=== PATIENT | female | born 1970 | race Caucasian/White ===

== ENCOUNTER 2016-05-28 03:34 | Emergency (ER) | payer BC, OTHER ==
[~2016-05-28] VITALS: Ht 172.7 cm; Wt 71.7 kg
[~2016-05-28 03:34] MED LIST: LORTA5 PO; NAPR500 PO
[2016-05-28 03:37] VITALS: BP 136/80; PULSE 114; RESP 18; TEMP 98.3; O2SAT 98
[2016-05-28] MEDS ORDERED: SODIUM CHLOR 0.9% 1000 ML INJ 1,000 ML IV SCH (04:52)
[2016-05-28] MEDS ORDERED: ONDANSETRON HCL 4 MG/2 ML VIAL IVP ONE (05:00)
[2016-05-28] MEDS ORDERED: HYDROmorphone HCL PF 1 MG/ML VIAL IV PUSH ONE (05:00)
[2016-05-28 05:05] LABS: AUTOMATED NEUTROPHIL # 11.8 TH/MM3 (1.8-7.7); BASOPHIL # 0.1 TH/MM3 (0-0.2); BASOPHIL % 0.6 % (0.0-2.0); EOSINOPHIL # 0.1 TH/MM3 (0-0.4); EOSINOPHIL % 0.8 % (0.0-4.0); HEMATOCRIT 44.5 % (35.0-46.0); LYMPH % 13.3 % (9.0-44.0); LYMPHOCYTE # 2.1 TH/MM3 (1.0-4.8); MEAN CELL VOLUME 98.1 FL (80.0-100.0); MEAN CORPUSCULAR HEMOGLOBIN 32.7 PG (27.0-34.0); MEAN CORPUSCULAR HGB CONC 33.4 % (32.0-36.0); NEUT % 76.3 % (16.0-70.0); PLATELET COUNT 251 TH/MM3 (150-450); RED BLOOD COUNT 4.54 MIL/MM3 (4.00-5.30); RED CELL DISTRIBUTION WIDTH 12.4 % (11.6-17.2); WHITE BLOOD COUNT 15.5 TH/MM3 (4.0-11.0)
[2016-05-28 05:07] LABS: HEMO FLAGS DIFF FINAL
[2016-05-28 05:09] LABS: BLOOD, URINE LARGE (NEG); GLUCOSE,URINE NEG (NEG); KETONE, URINE NEG (NEG)
[2016-05-28 05:14] LABS: CHLORIDE 108 MEQ/L (98-107); POTASSIUM 3.8 MEQ/L (3.5-5.1); SODIUM (NA) 141 MEQ/L (136-145)
[2016-05-28 05:18] LABS: ANION GAP 6 MEQ/L (5-15); BICARBONATE 26.7 MEQ/L (21.0-32.0); BLOOD UREA NITROGEN 11 MG/DL (7-18)
[2016-05-28 05:21] LABS: ALT (GPT) 13 U/L (10-53); AST (GOT) 11 U/L (15-37); GLOMERULAR FILTRATION RATE 76 ML/MIN (>89)
[2016-05-28 05:22] LABS: NITRITE,URINE POS (NEG)
[2016-05-28 05:23] LABS: METHOD OF COLLECTION CLEAN CATCH; TOTAL BILIRUBIN ADULT 0.3 MG/DL (0.2-1.0); URINE COLOR YELLOW (YELLW/STRAW)
[2016-05-28 05:24] LABS: ALKALINE PHOSPHATASE 79 U/L (45-117); WBC, URINE 100-200 /hpf (0-5)
[2016-05-28 05:25] LABS: BACTERIA, URINE MANY /hpf; SQUAMOUS EPITHELIAL CELL URINE 0-5 /hpf (0-5)
[2016-05-28 05:26] LABS: COMMENT (UR) CULTURE INDICATED; CULTURE IF INDICATED CULTURE INDICATED; MUCUS URINE OCC /lpf (OCC)
[2016-05-28] MEDS: SODIUM CHLORIDE 0.9% FLUSH 5 ML FLUSH IVF PRN ×2 (05:39→07:44)
[2016-05-28 05:47] VITALS: BP 91/62; PULSE 78; RESP 20; O2SAT 98
[2016-05-28] MEDS ORDERED: IOHEXOL 350 MG/ML 10 ML VIAL (for RAD DIAG) IV ONE (05:48)
--- NOTE | 2016-05-28 06:00 | RADHPO ---
EXAM DATE/TIME: 05/28/2016 05:40 [facility] COMPARISON: No previous studies available for comparison. INDICATIONS : Right flank pain. IV CONTRAST: 100 cc Omnipaque 350 (iohexol) IV ORAL CONTRAST: No oral contrast ingested. RADIATION DOSE: 7.41 CTDIvol (mGy) MEDICAL HISTORY : None SURGICAL HISTORY : Hysterectomy. ENCOUNTER: Initial ACUITY: 3 days PAIN SCALE: 9/10 LOCATION: Right flank TECHNIQUE: Volumetric scanning of the abdomen and pelvis was performed. Using automated exposure control and ad justment of the mA and/or kV according to patient size, radiation dose was kept as low as reasonably achievable to obtain optimal diagnostic quality images. FINDINGS: LOWER LUNGS: The visualized lower lungs are clear. LIVER: Homogeneous density without lesion. There is no dilation of the biliary tree. No calcified gallston es. SPLEEN: Normal size without lesion. PANCREAS: Within normal limits. KIDNEYS: Normal in size and shape. There is no mass, stone or hydronephrosis. There is a tiny cyst in the rig ht kidney. ADRENAL GLANDS: Within normal limits. VASCULAR: There is no aortic aneurysm. BOWEL/MESENTERY: The stomach, small bowel, and colon demonstrate no acute abnormality. There is no free intraperitone al air or fluid. The appendix is unremarkable. No inflammatory changes are seen. There is a moderate amount of stool throughout the colon. ABDOMINAL WALL: Within normal limits. RETROPERITONEUM: There is no lymphadenopathy. BLADDER: No wall thickening or mass. No stones. REPRODUCTIVE: Within normal limits. INGUINAL: There is no lymphadenopathy or hernia. MUSCULOSKELETAL: Within normal limits for patient age. CONCLUSION: Unremarkable CT scan of the abdomen and pelvis for patient's age. Phill Álvarez MD on May 28, 2016 at 5:56 Board Certified Radiologist. This report was verified electronically.
[2016-05-28 06:05] VITALS: BP 95/63; PULSE 74; RESP 20; O2SAT 96
[2016-05-28] MEDS ORDERED: SODIUM CHLOR 0.9% 1000 ML INJ 1,000 ML IV ONE (06:45)
[2016-05-28] MEDS ORDERED: cefTRIAXone INJ 1,000 MG in SODIUM CHLORIDE 0.9% INJ 100 ML IV ONE (06:45)
--- NOTE | 2016-05-28 06:45 | PD ---
HPI Chief Complaint: Flank/Kidney Pain Time Seen by Provider: 04:52 Travel History International Travel<30 days: No Contact w/Intl Traveler<30days: No Traveled to known affect area: No History of Present Illness HPI 45-year-old female presents to the emergency department by private transportation for complaint of not feeling well since . Patient started having fever 10 2F on Friday. Due to persistent generalized weakness and right-sided flank pain radiating to the right lower quadrant decided to come to the emergency department this time for further evaluation. Patient reports she was not seen by primary care provider. Patient is status post partial hysterectomy. Patient rates discomfort 9/10 in intensity. Patient's had nausea without vomiting or diarrhea. No vaginal bleeding or discharge. No respiratory illness. PFSH Past Medical History Narrative Medical Negative past medical history partial hysterectomy tobacco use nursing notes reviewed Diminished Hearing: No Influenza Vaccination: No ?: Not Past Surgical History Hysterectomy: Yes (PARTIAL) Social History Alcohol Use: No Tobacco Use: Yes (05/06 PPD) Substance Use: No Allergies-Medications (Allergen,Severity, Reaction): Coded Allergies: Biaxin (Unverified Allergy, Unknown, 05/28/16) Tamiflu (Unverified Allergy, Unknown, 05/28/16) Reported Meds & Prescriptions Reported Meds & Active Scripts Active Levaquin (Levofloxacin) 500 Mg Tab 500 Mg PO DAILY 7 Days Phenergan (Promethazine HCl) 25 Mg Tab 25 Mg PO Q6H PRN Lortab (Hydrocodone-Acetaminophen) 5-325 Mg Tab 1 Tab PO Q6H PRN Reported Naprosyn (Naproxen) 500 Mg Tab 500 Mg PO BID PRN Hydrocodone/Acetaminophen 5 mg/325 mg 1 Tab 1 Tab PO Q4H PRN Review of Systems Except as stated in HPI: all other systems reviewed are Neg General / Constitutional: Positive: Fever HENT: No: Congestion Cardiovascular: No: Chest Pain or Discomfort Respiratory: No: Cough, Shortness of Breath Gastrointestinal: Positive: Nausea, Abdominal Pain, No: Vomiting, Diarrhea Genitourinary: Positive: Flank Pain, No: Dysuria, Discharge, Vaginal Bleeding Musculoskeletal: No: Myalgias, Arthralgias Skin: No Rash Neurologic: No: Weakness Psychiatric: No: Anxiety Hematologic/Lymphatic: No: Lymph Node Enlargement Physical Exam Narrative GENERAL: Well-developed well-nourished female in obvious discomfort without respiratory distress SKIN: Warm and dry. HEAD: Normocephalic. EYES: No scleral icterus. No injection or drainage. NECK: Supple, trachea midline. No JVD or lymphadenopathy. CARDIOVASCULAR: Regular rate and rhythm without murmurs, gallops, or rubs. RESPIRATORY: Breath sounds equal bilaterally. No accessory muscle use. GASTROINTESTINAL: Abdomen soft, non-tender, nondistended. MUSCULOSKELETAL: No cyanosis, or edema. BACK: Nontender without obvious deformity. Right-sided CVA tenderness. Data Data Last Documented VS Vital Signs Date Time Temp Pulse Resp B/P Pulse Ox O2 Delivery O2 Flow Rate FiO2 05/28/16 06:13 20 05/28/16 06:05 74 95/63 96 05/28/16 03:37 98.3 Room Air Orders Complete Blood Count With Diff (05/28/16 04:52) Comprehensive Metabolic Panel (05/28/16 04:52) Lipase (05/28/16 04:52) Lactic Acid (05/28/16 04:52) Urinalysis - C+S If Indicated (05/28/16 04:52) Iv Access Insert/Monitor (05/28/16 04:52) Ecg Monitoring (05/28/16 04:52) Oximetry (05/28/16 04:52) Ondansetron Inj (Zofran Inj) (05/28/16 05:00) Sodium Chlor 0.9% 1000 Ml Inj (Ns 1000 M (05/28/16 04:52) Sodium Chloride 0.9% Flush (Ns Flush) (05/28/16 05:00) Ed Urine Pregnancytest Poc (05/28/16 04:52) Hydromorphone Pf Inj (Dilaudid Pf Inj) (05/28/16 05:00) Ct Abd/Pel W Iv Contrast(Rout) (05/28/16 ) Urine Culture (05/28/16 05:00) Iohexol 350 Inj (Omnipaque 350 Inj) (05/28/16 05:48) Sodium Chlor 0.9% 1000 Ml Inj (Ns 1000 M (05/28/16 06:45) Ceftriaxone Inj (Rocephin Inj) (05/28/16 06:45) Blood Culture (05/28/16 06:46) Levofloxacin (Levaquin) (05/28/16 07:45) Labs Laboratory Tests Test 05/28/16 05/28/16 05:00 06:03 White Blood Count 15.5 TH/MM3 Red Blood Count 4.54 MIL/MM3 Hemoglobin 14.9 GM/DL Hematocrit 44.5 % Mean Corpuscular Volume 98.1 FL Mean Corpuscular Hemoglobin 32.7 PG Mean Corpuscular Hemoglobin 33.4 % Concent Red Cell Distribution Width 12.4 % Platelet Count 251 TH/MM3 Mean Platelet Volume 8.0 FL Neutrophils (%) (Auto) 76.3 % Lymphocytes (%) (Auto) 13.3 % Monocytes (%) (Auto) 9.0 % Eosinophils (%) (Auto) 0.8 % Basophils (%) (Auto) 0.6 % Neutrophils # (Auto) 11.8 TH/MM3 Lymphocytes # (Auto) 2.1 TH/MM3 Monocytes # (Auto) 1.4 TH/MM3 Eosinophils # (Auto) 0.1 TH/MM3 Basophils # (Auto) 0.1 TH/MM3 CBC Comment DIFF FINAL Differential Comment Urine Collection Type CLEAN CATCH Urine Color YELLOW Urine Turbidity MOD Urine pH 6.0 Urine Specific Jackson 1.010 Urine Protein NEG mg/dL Urine Glucose (UA) NEG mg/dL Urine Ketones NEG mg/dL Urine Occult Blood LARGE Urine Nitrite POS Urine Bilirubin NEG Urine Leukocyte Esterase LARGE Urine RBC 4-9 /hpf Urine WBC 100-200 /hpf Urine WBC Clumps FEW Urine Squamous Epithelial 0-5 /hpf Cells Urine Bacteria MANY /hpf Urine Mucus OCC /lpf Microscopic Urinalysis Comment CULTURE INDICATED Sodium Level 141 MEQ/L Potassium Level 3.8 MEQ/L Chloride Level 108 MEQ/L Carbon Dioxide Level 26.7 MEQ/L Anion Gap 6 MEQ/L Blood Urea Nitrogen 11 MG/DL Creatinine 0.82 MG/DL Estimat Glomerular Filtration 76 ML/MIN Rate Random Glucose 101 MG/DL Calcium Level 8.8 MG/DL Total Bilirubin 0.3 MG/DL Aspartate Amino Transf 11 U/L (AST/SGOT) Alanine Aminotransferase 13 U/L (ALT/SGPT) Alkaline Phosphatase 79 U/L Total Protein 7.3 GM/DL Albumin 3.5 GM/DL Lipase 75 U/L Lactic Acid Level 0.7 mmol/L MDM Medical Decision Making Medical Screen Exam Complete: Yes Emergency Medical Condition: Yes Medical Record Reviewed: Yes Interpretation(s) Last Impressions Abdomen/Pelvis CT 05/28/16 0000 Signed Impressions: Service Date/Time: Saturday, May 28, 2016 05:40 - CONCLUSION: Unremarkable CT scan of the abdomen and pelvis for patient's age. Phill Álvarez MD Laboratory Tests Test 05/28/16 05/28/16 05:00 06:03 White Blood Count 15.5 TH/MM3 Red Blood Count 4.54 MIL/MM3 Hemoglobin 14.9 GM/DL Hematocrit 44.5 % Mean Corpuscular Volume 98.1 FL Mean Corpuscular Hemoglobin 32.7 PG Mean Corpuscular Hemoglobin 33.4 % Concent Red Cell Distribution Width 12.4 % Platelet Count 251 TH/MM3 Mean Platelet Volume 8.0 FL Neutrophils (%) (Auto) 76.3 % Lymphocytes (%) (Auto) 13.3 % Monocytes (%) (Auto) 9.0 % Eosinophils (%) (Auto) 0.8 % Basophils (%) (Auto) 0.6 % Neutrophils # (Auto) 11.8 TH/MM3 Lymphocytes # (Auto) 2.1 TH/MM3 Monocytes # (Auto) 1.4 TH/MM3 Eosinophils # (Auto) 0.1 TH/MM3 Basophils # (Auto) 0.1 TH/MM3 CBC Comment DIFF FINAL Differential Comment Urine Collection Type CLEAN CATCH Urine Color YELLOW Urine Turbidity MOD Urine pH 6.0 Urine Specific Jackson 1.010 Urine Protein NEG mg/dL Urine Glucose (UA) NEG mg/dL Urine Ketones NEG mg/dL Urine Occult Blood LARGE Urine Nitrite POS Urine Bilirubin NEG Urine Leukocyte Esterase LARGE Urine RBC 4-9 /hpf Urine WBC 100-200 /hpf Urine WBC Clumps FEW Urine Squamous Epithelial 0-5 /hpf Cells Urine Bacteria MANY /hpf Urine Mucus OCC /lpf Microscopic Urinalysis Comment CULTURE INDICATED Sodium Level 141 MEQ/L Potassium Level 3.8 MEQ/L Chloride Level 108 MEQ/L Carbon Dioxide Level 26.7 MEQ/L Anion Gap 6 MEQ/L Blood Urea Nitrogen 11 MG/DL Creatinine 0.82 MG/DL Estimat Glomerular Filtration 76 ML/MIN Rate Random Glucose 101 MG/DL Calcium Level 8.8 MG/DL Total Bilirubin 0.3 MG/DL Aspartate Amino Transf 11 U/L (AST/SGOT) Alanine Aminotransferase 13 U/L (ALT/SGPT) Alkaline Phosphatase 79 U/L Total Protein 7.3 GM/DL Albumin 3.5 GM/DL Lipase 75 U/L Lactic Acid Level 0.7 mmol/L Differential Diagnosis Renal colic, pyelonephritis, biliary colic, peptic ulcer disease, appendicitis, ruptured ovarian cyst, ectopic Narrative Course Patient placed on monitor IV access obtained specimens collected and sent for resulting imaging studies ordered [id number] hCG negative; CT abdomen and pelvis reveals no acute intra- abdominal or pelvic pathology CBC with leukocytosis and left shift but lactic acid is 0.8 not elevated metabolic panel grossly within normal range with normal anion gap and bicarbonate; abnormal urinalysis with culture indicated IV fluids administered and IV antibiotics ordered for administration after blood culture obtained @ 07:35 patient reports that she feels improved; reports that her blood pressure is never this high" BP:96/65; desires being discharged to home ---will agree to outpatient trial Critical Care Narrative Aggregate critical care time was 35 minutes. Time to perform other separately billable procedures was not included in the critical care time. My time did not include minutes spent treating any other patients simultaneously or on activities that did not directly contribute to the patient's treatment. The services I provided to this patient were to treat and/or prevent clinically significant deterioration that could result in: Severe sepsis, shock, I provided critical care services requiring my management, as noted below: Chart data review, documentation time, medication orders and management, vital sign assessments/reviewing monitor data, ordering and reviewing lab tests, ordering and interpreting/reviewing x-rays and diagnostic studies, care of the patient and discussion of the patient with the admitting physicians. Sepsis Criteria SIRS Criteria (2 or more): Temp > 100.9 or < 96.8, WBC > 29109, < 4000 or > 10 % bands Sepsis Criteria (SIRS+source): Infect source susp/known (uti/pyelonephritis) Diagnosis Primary Impression: Pyelonephritis Referrals: Primary Care Physician 2 days Patient Instructions: Narcotic given in the ED, General Instructions Additional Instructions: Complete course of antibiotic as prescribed Follow-up with primary care provider or clinic Monitor temperature every 4 hours with thermometer take as needed acetaminophen/ Tylenol every 4 hours for fever 100.4F or greater and/or ibuprofen/Advil/ Motrin every 6-8 hours as needed for fever 100.4 days Fahrenheit or greater or for pain associated inflammation Return to the emergency department for any concerns or change in condition Take pain medication as prescribed as needed/tolerated Med/Other Pt SpecificInfo: Prescription(s) given Scripts Levofloxacin (Levaquin)500 Mg Onh151 Mg PO DAILY 7 Days Ref 0 Prov:Kenna Casper MD 05/28/16 Promethazine (Phenergan)25 Mg Tab25 Mg PO Q6H PRN (Nausea/Vomiting) #10 TAB Ref 0 Prov:Kenna Casper MD 05/28/16 Hydrocodone-Acetaminophen (Lortab)5-325 Mg Tab1 Tab PO Q6H PRN (PAIN) #10 TAB Ref 0 Prov:Kenna Casper MD 05/28/16 Disposition: 01 DISCHARGE HOME Condition: Stable Kenna Casper MD May 28, 2016 06:45
[2016-05-28 07:16] VITALS: BP 96/63; PULSE 74; RESP 16; TEMP 97.7; O2SAT 96
[2016-05-28] MEDS ORDERED: LEVA500T PO (07:37)
[2016-05-28] MEDS ORDERED: HYDR-3533 PO (07:37)
[2016-05-28] MEDS ORDERED: PROM25TA5 PO (07:37)
[2016-05-28] MEDS ORDERED: LEVOFLOXACIN 500 MG TAB PO ONE (07:45)
[2016-05-28 08:48] VITALS: BP 106/55
== END 2016-05-28 08:56 | disposition home or self-care (01) ==
LOC: PHED 03:34
DX: N12 Tubulo-interstitial nephritis, not specified as acute or chronic (principal); B96.20 Unspecified Escherichia coli [E. coli] as the cause of diseases classified elsewhere
CPT/HCPCS: 74177; 80053; 81001; 83605; 83690; 85025; 87040; 87077; 87086; 87186; 96361; 96365; 96375; 99285; J0696; J1170; J2405; J7030; Q9967

== ENCOUNTER 2017-08-03 09:58 | Emergency (ER) | payer BC, OTHER ==
[~2017-08-03] VITALS: Ht 172.7 cm; Wt 75.0 kg
[~2017-08-03 09:58] MED LIST changes: +CYCL10TA; +DICL1GEL TOPICAL; +IBUP1TAB7; -LORTA5 PO; -NAPR500 PO
[2017-08-03 10:03] VITALS: BP 142/85; PULSE 82; RESP 17; TEMP 98.1; O2SAT 99
[2017-08-03 10:12] VITALS: BP 121/83; PULSE 74; RESP 18; O2SAT 98
[2017-08-03] MEDS ORDERED: SODIUM CHLORIDE 0.9% FLUSH 10 ML FLUSH IV FLUSH PRN (10:30)
[2017-08-03] MEDS ORDERED: KETOROLAC TROMETHAMINE 30 MG/ML (IVP) VIAL IV PUSH ONE (10:30)
[2017-08-03] MEDS ORDERED: DEXAMETHASONE SOD PHOS 4 MG/ML VIAL IV PUSH ONE (10:30)
[2017-08-03] MEDS ORDERED: METOCLOPRAMIDE HCL 10 MG/2 ML VIAL IV PUSH ONE (10:30)
--- NOTE | 2017-08-03 10:41 | PD ---
HPI Chief Complaint: Back/ Neck Pain or Injury Time Seen by Provider: 10:19 Travel History International Travel<30 days: No Contact w/Intl Traveler<30days: No Traveled to known affect area: No History of Present Illness HPI 46-year-old female with chronic neck and back issues followed by pain management , here for evaluation of bilateral hand and forearm numbness/tingling in bilateral f lower extremity numbness/tingling. Patient reports that she has had the bilateral lower extremity paresthesias for some time, however she woke up at around 3:30 AM with bilateral hand and forearm tingling. She has also had a frontal/pressure-like headache with gradual onset for the last 4 days. She reports that she had an MRI performed last week and is here with a CD of a copy of the images, however does not have the report. She denies urinary or bowel incontinence or retention. No motor weakness. No history of IVDU. Paresthesias are associated with pain which is moderate and the patient has been taking ibuprofen for with only mild relief. PFSH Past Medical History Diminished Hearing: No ?: Not Past Surgical History Hysterectomy: Yes (PARTIAL) Social History Alcohol Use: No Tobacco Use: Yes (/ PPD) Substance Use: No Allergies-Medications (Allergen,Severity, Reaction): Coded Allergies: clarithromycin (Unverified Allergy, Unknown, 12/17/16) oseltamivir (Unverified Allergy, Unknown, 12/17/16) Reported Meds & Prescriptions Reported Meds & Active Scripts Active Hydrocodone-Acetaminophen 5-325 mg Tab 1 Tab PO Q6H PRN Prednisone 50 Mg Tab 50 Mg PO DAILY 4 Days Diclofenac Sodium 1 % Gel..gram. 1 Tube TOPICAL BID APPLY CREAM TO SACRUM BID. Reported Hydrocodone-Acetaminophen 5-325 mg Tab 1 Tab PO Q4H PRN Ibuprofen 800 Mg Tab Flexeril (Cyclobenzaprine HCl) 10 Mg Tab Review of Systems Except as stated in HPI: all other systems reviewed are Neg Physical Exam Narrative GENERAL: Well-developed, well-nourished, comfortable, no apparent distress. SKIN: Focused skin assessment warm/dry. HEAD: Atraumatic. Normocephalic. EYES: Pupils equal and round. No scleral icterus. No injection or drainage. ENT: Mucous membranes pink and moist. NECK: Trachea midline. No JVD. CARDIOVASCULAR: Regular rate and rhythm. No murmur appreciated. RESPIRATORY: No accessory muscle use. Clear to auscultation. Breath sounds equal bilaterally. GASTROINTESTINAL: Abdomen soft, non-tender, nondistended. MUSCULOSKELETAL: No obvious deformities. No clubbing. No cyanosis. No edema. NEUROLOGICAL: Awake and alert. No obvious cranial nerve deficits. Motor grossly within normal limits. Normal speech. Normal muscle strength in all 4 extremities. Brisk patellar tendon reflexes bilaterally. No focal deficits. PSYCHIATRIC: Appropriate mood and affect; insight and judgment normal. Data Data Last Documented VS Vital Signs Date Time Temp Pulse Resp B/P (MAP) Pulse Ox O2 Delivery O2 Flow Rate FiO2 08/03/17 12:29 16 08/03/17 10:12 74 121/83 (96) 98 Room Air 08/03/17 10:03 98.1 Orders Orders Complete Blood Count With Diff (08/03/17 10:24) Comprehensive Metabolic Panel (08/03/17 10:24) Prothrombin Time / Inr (Pt) (08/03/17 10:24) Act Partial Throm Time (Ptt) (08/03/17 10:24) Iv Access Insert/Monitor (08/03/17 10:24) Ecg Monitoring (08/03/17 10:24) Oximetry (08/03/17 10:24) Sodium Chloride 0.9% Flush (Ns Flush) (08/03/17 10:30) Electrocardiogram (08/03/17 10:24) Ckmb (Isoenzyme) Profile (08/03/17 10:24) Troponin I (08/03/17 10:24) Chest, Single Ap (08/03/17 10:24) Ct Brain W/O Iv Contrast(Rout) (08/03/17 ) Metoclopramide Inj (Reglan Inj) (08/03/17 10:30) Ketorolac Inj (Toradol Inj) (08/03/17 10:30) Dexamethasone Inj (Decadron Inj) (08/03/17 10:30) Ct Cerv Spine W/O Contrast (08/03/17 ) Labs Laboratory Tests Test 08/03/17 10:20 08/03/17 11:55 White Blood Count 11.7 TH/MM3 Red Blood Count 4.55 MIL/MM3 Hemoglobin 15.8 GM/DL Hematocrit 45.5 % Mean Corpuscular Volume 100.0 FL Mean Corpuscular Hemoglobin 34.7 PG Mean Corpuscular Hemoglobin Concent 34.7 % Red Cell Distribution Width 13.7 % Platelet Count 269 TH/MM3 Mean Platelet Volume 8.3 FL Neutrophils (%) (Auto) 71.5 % Lymphocytes (%) (Auto) 20.0 % Monocytes (%) (Auto) 6.3 % Eosinophils (%) (Auto) 1.3 % Basophils (%) (Auto) 0.9 % Neutrophils # (Auto) 8.4 TH/MM3 Lymphocytes # (Auto) 2.3 TH/MM3 Monocytes # (Auto) 0.7 TH/MM3 Eosinophils # (Auto) 0.2 TH/MM3 Basophils # (Auto) 0.1 TH/MM3 CBC Comment DIFF FINAL Differential Comment Blood Urea Nitrogen 21 MG/DL Creatinine 0.81 MG/DL Random Glucose 92 MG/DL Total Protein 7.0 GM/DL Albumin 3.9 GM/DL Calcium Level 8.8 MG/DL Alkaline Phosphatase 74 U/L Aspartate Amino Transf (AST/SGOT) 17 U/L Alanine Aminotransferase (ALT/SGPT) 14 U/L Total Bilirubin 0.2 MG/DL Sodium Level 137 MEQ/L Potassium Level 4.0 MEQ/L Chloride Level 107 MEQ/L Carbon Dioxide Level 22.6 MEQ/L Anion Gap 7 MEQ/L Estimat Glomerular Filtration Rate 76 ML/MIN Total Creatine Kinase 66 U/L Troponin I LESS THAN 0.02 NG/ML Prothrombin Time 11.0 SEC Prothromb Time International Ratio 1.1 RATIO Activated Partial Thromboplast Time 25.2 SEC MDM Medical Decision Making Medical Screen Exam Complete: Yes Emergency Medical Condition: Yes Interpretation(s) EKG: Sinus, rate 67, normal axis, normal intervals, no acute ischemic abnormality. Differential Diagnosis Paresthesias, metabolic abnormality, cord compression, dissection, intracranial abnormality, Narrative Course Vital signs reviewed. CBC and CMP were reviewed and are essentially unremarkable aside from slight hemoconcentration. Patient does smoke cigarettes. Cardiac enzymes are negative. CT head: Negative noncontrast head CT. CT cervical spine: Unremarkable exam. Chest x-ray: No acute disease. I attempted to contact the facility where the patient had her outpatient MRI to obtain the reading, however it is Friday and the place is closed. Patient was provided Reglan, Toradol, and Decadron, and on reassessment she states that her paresthesias have improved as well as her headache. There is no nuchal rigidity on exam. She is afebrile. Headache onset was gradual. I do not believe that LP is warranted at this time. The patient also has no focal neurologic deficits and has normal muscle strength in all 4 extremities. At this point I believe she is stable for discharge home with outpatient follow-up with her neurologist/pain management physician this week. She was advised on when to return to the emergency department. She feels comfortable with this plan. Diagnosis Primary Impression: Paresthesias Additional Impression: Headache Qualified Codes: R51 - Headache Referrals: Primary Care Physician 3 days Additional Instructions: Follow-up with your neurologist/sign painter helper this week. Return to the emergency department for worsening symptoms or any other concerns. Scripts Hydrocodone-Acetaminophen (Hydrocodone-Acetaminophen) 5-325 mg Tab 1 TAB PO Q6H Y for PAIN, #6 TAB 0 Refills Prov: Hao Arevalo MD 08/03/17 Prednisone (Prednisone) 50 Mg Tab 50 MG PO DAILY for 4 Days, #4 TAB 0 Refills Prov: Hao Arevalo MD 08/03/17 Disposition: 01 DISCHARGE HOME Condition: Stable Hao Arevalo MD Aug 03, 2017 10:41
[2017-08-03 10:46] LABS: AUTOMATED NEUTROPHIL # 8.4 TH/MM3 (1.8-7.7); BASOPHIL # 0.1 TH/MM3 (0-0.2); BASOPHIL % 0.9 % (0.0-2.0); EOSINOPHIL # 0.2 TH/MM3 (0-0.4); EOSINOPHIL % 1.3 % (0.0-4.0); HEMATOCRIT 45.5 % (35.0-46.0); HEMOGLOBIN 15.8 GM/DL (11.6-15.3); LYMPHOCYTE # 2.3 TH/MM3 (1.0-4.8); MEAN CORPUSCULAR HEMOGLOBIN 34.7 PG (27.0-34.0); MEAN CORPUSCULAR HGB CONC 34.7 % (32.0-36.0); MEAN PLATELET VOLUME 8.3 FL (7.0-11.0); MONO % 6.3 % (0.0-8.0); MONOCYTE # 0.7 TH/MM3 (0-0.9); NEUT % 71.5 % (16.0-70.0); PLATELET COUNT 269 TH/MM3 (150-450); RED BLOOD COUNT 4.55 MIL/MM3 (4.00-5.30); RED CELL DISTRIBUTION WIDTH 13.7 % (11.6-17.2); WHITE BLOOD COUNT 11.7 TH/MM3 (4.0-11.0)
--- NOTE | 2017-08-03 10:47 | RADRPT ---
EXAM DATE/TIME: 08/03/2017 10:32 [facility] COMPARISON: No previous studies available for comparison. INDICATIONS : Upper and lower extremity numbness. MEDICAL HISTORY : None. SURGICAL HISTORY : None. ENCOUNTER: Initial ACUITY: 1 day PAIN SCORE: 0/10 LOCATION: Bilateral chest FINDINGS: 2 AP erect portable views the chest were obtained and demonstrate mild hyperinflation with no conflue nt infiltrates or effusions. Multiple calcified istent normal and hilar lymph nodes are present. The heart size is within normal limits. The bony thorax is intact. There are multiple overlying electroca rdiogram leads. CONCLUSION: No acute disease. Hunter Rubio MD on August 03, 2017 at 10:44 Board Certified Radiologist. This report was verified electronically.
--- NOTE | 2017-08-03 10:57 | RADRPT ---
EXAM DATE/TIME: 08/03/2017 10:46 [facility] COMPARISON: No previous studies available for comparison. INDICATIONS : Numbness, tingling arms and legs, prior back fracture. RADIATION DOSE: 32.62 CTDIvol (mGy) MEDICAL HISTORY : Fracture spine SURGICAL HISTORY : Hysterectomy. ENCOUNTER: Initial ACUITY: 1 day PAIN SCALE: 0/10 LOCATION: cranial TECHNIQUE: Multiple contiguous axial images were obtained of the head. Using automated exposure control and adj ustment of the mA and/or kV according to patient size, radiation dose was kept as low as reasonably a chievable to obtain optimal diagnostic quality images. DICOM format image data is available electro nically for review and comparison. FINDINGS: CEREBRUM: The ventricles are normal for age. No evidence of midline shift, mass lesion, hemorrhage or acute in farction. No extra-axial fluid collections are seen. POSTERIOR FOSSA: The cerebellum and brainstem are intact. The 4th ventricle is midline. The cerebellopontine angle i s unremarkable. EXTRACRANIAL: The visualized portion of the orbits is intact. SKULL: The calvaria is intact. No evidence of skull fracture. CONCLUSION: Negative noncontrast head CT Hunter Rubio MD on August 03, 2017 at 10:54 Board Certified Radiologist. This report was verified electronically.
[2017-08-03] MEDS ORDERED: HYDR-3516 PO ×2 (11:09→12:31)
[2017-08-03 11:10] VITALS: O2SAT 98
--- NOTE | 2017-08-03 11:10 | RADRPT ---
EXAM DATE/TIME: 08/03/2017 10:46 [facility] COMPARISON: No previous studies available for comparison. INDICATIONS : Numbness and tingling in arms and legs, previous spine fracture. RADIATION DOSE: 17.24 CTDIvol (mGy) MEDICAL HISTORY : spinal fx SURGICAL HISTORY : Hysterectomy. ENCOUNTER: Initial ACUITY: 1 day PAIN SCALE: 0/10 LOCATION: neck posterior TECHNIQUE: Volumetric scanning of the cervical spine was performed. Multiplanar reconstructions in the sagittal, coronal and oblique axial planes were performed. Using automated exposure control and adjustment o f the mA and/or kV according to patient size, radiation dose was kept as low as reasonably achievable to obtain optimal diagnostic quality images. DICOM format image data is available electronically f or review and comparison. FINDINGS: VERTEBRAE: Normal vertebral body height. ALIGNMENT: No evidence of subluxation. C2-C3: The bony spinal canal is normal in size. No evidence of disc bulge or herniation. The neural forami na are bilaterally patent. C3-C4: The bony spinal canal is normal in size. No evidence of disc bulge or herniation. The neural forami na are bilaterally patent. C4-C5: The bony spinal canal is normal in size. No evidence of disc bulge or herniation. The neural forami na are bilaterally patent. C5-C6: The bony spinal canal is normal in size. No evidence of disc bulge or herniation. The neural forami na are bilaterally patent. C6-C7: The bony spinal canal is normal in size. No evidence of disc bulge or herniation. The neural forami na are bilaterally patent. C7-T1: The bony spinal canal is normal in size. No evidence of disc bulge or herniation. The neural forami na are bilaterally patent. CONCLUSION: Unremarkable exam. Hunter Rubio MD on August 03, 2017 at 11:05 Board Certified Radiologist. This report was verified electronically.
[2017-08-03 11:39] LABS: ALBUMIN 3.9 GM/DL (3.4-5.0); ALKALINE PHOSPHATASE 74 U/L (45-117); ALT (GPT) 14 U/L (10-53); AST (GOT) 17 U/L (15-37); BICARBONATE 22.6 MEQ/L (21.0-32.0); BLOOD UREA NITROGEN 21 MG/DL (7-18); CALCIUM 8.8 MG/DL (8.5-10.1); CHLORIDE 107 MEQ/L (98-107); CREATININE 0.81 MG/DL (0.50-1.00); GLOMERULAR FILTRATION RATE 76 ML/MIN (>89); GLUCOSE,RANDOM 92 MG/DL (74-106); SODIUM (NA) 137 MEQ/L (136-145); TOTAL BILIRUBIN ADULT 0.2 MG/DL (0.2-1.0); TROPONIN I LESS THAN 0.02 NG/ML (0.02-0.05)
[2017-08-03 12:20] LABS: INTERNATIONAL NORMALIZED RATIO 1.1 RATIO
[2017-08-03 12:29] VITALS: RESP 16
[2017-08-03] MEDS ORDERED: PRED50 PO (12:31)
[2017-08-03 12:56] VITALS: BP 106/52
--- NOTE | 2017-08-04 09:07 | EKG ---
Date Performed: 08/03/2017 Time Performed: 12:35:09 PTAGE: 46 years EKG: Sinus rhythm POSSIBLE RIGHT VENTRICULAR CONDUCTION DELAY BORDERLINE ECG NO PREVIOUS TRACING DOCTOR: Yue Solorio Interpretating Date/Time 08/04/2017 09:05:05
== END 2017-08-03 12:57 | disposition home or self-care (01) ==
LOC: NEPE 09:58
DX: R20.2 Paresthesia of skin (principal); R51 Headache; M54.2 Cervicalgia; F17.200 Nicotine dependence, unspecified, uncomplicated; Z79.899 Other long term (current) drug therapy
CPT/HCPCS: 70450; 71045; 72125; 80053; 82550; 84484; 85025; 85610; 85730; 93005; 96374; 96375; 99285; J1100; J1885; J2765